=== PATIENT | female | born 1945 | race Caucasian/White ===

== ENCOUNTER 2016-08-03 11:25 | Emergency (ER) | payer BC, MEDICARE ==
[~2016-08-03 11:25] MED LIST: ACETAMINOPHEN PO; ALEVE220 M1 PO; AZOR 10/20 MG T1 TAB PO; GLUCOPHAGE500 M1 PO; MULTI-VITAMIN1 EAC1 PO; OMEPRAZOLE20 M1 PO; ZIAC PO
[2016-09-11] MEDS ORDERED: GABAPENTIN300 MG PO (13:05)
[2016-09-11] MEDS ORDERED: MOBIC15 MG PO (13:05)
== END 2016-08-03 11:32 | disposition home or self-care (01) ==
LOC: CFTX 11:25
DX: M54.42 Lumbago with sciatica, left side (principal); G89.29 Other chronic pain; E11.9 Type 2 diabetes mellitus without complications; I10 Essential (primary) hypertension; Z90.49 Acquired absence of other specified parts of digestive tract
CPT/HCPCS: 96372; 99283; J1885

== ENCOUNTER → 2016-09-12 | Day surgery (SDC) | payer BC, MEDICARE ==
[~2016-09-12] MED LIST changes: +GABAPENTIN300 MG PO; +MOBIC15 MG PO
--- NOTE | ~2016-09-12 | OR ---
Unit #: [id number] #: [id number] Patient: KAILEE TAYLOR [id number] [address] [place], [place] [address] [id number] MR#: [id number] NAME: KAILEE TAYLOR ROOM: Date of Procedure: 09/12/2016 Admission Date: 09/12/2016 Surgeon: Gilbert Ferguson M.D. : 1945 Attending Physician: Gilbert Ferguson M.D. Primary Care Physician: Elier Miranda M.D. [facility] OPERATIVE NOTE PROCEDURE PERFORMED Lumbar epidural steroid injection under x-ray guided needle placement with provider administered conscious sedation. PREOPERATIVE DIAGNOSES 1. Acute lumbar radiculitis. 2. Spinal stenosis, lumbosacral spine. 3. Herniated disk, L5-S1. 4. Degenerative joint disease, lumbosacral spine. 5. Degenerative disk disease, lumbosacral spine. INDICATIONS FOR PROCEDURE The patient presents today with a longstanding history of chronic recurrent lumbar radicular pain secondary to her underlying degenerative processes. She is generally fairly well managed medically, does occasionally experience exacerbations, which to date have only responded to epidural steroid injections. Her usual amount of pain relief was 80% to 100% for 8 to 10 weeks. She currently presents approximately 14 weeks out from her last epidural steroid injection with the 2- to 4-weeks history of crescendo pattern advancing radicular pain consistent with her L5-S1 herniated disk on x-ray reports. After discussing risks and benefits of proceeding today with a lumbar approach epidural steroid injection, the patient agreed this would be the appropriate course of action. DESCRIPTION OF PROCEDURE She was then taken to the operating room, where she was prepped and draped in a sterile manner. Standard monitors were applied. She was sedated with 2 mg of IV Versed initially and required additional 2 mg of IV Versed throughout the duration of the procedure. Lumbar epidural space was accessed at the L5-S1 level using loss of resistance technique and x-ray guidance. Needle placement was confirmed with injection of 2 mL of Omnipaque. There was good superior and inferior flow at this L5-S1 needle placement. Total x-ray time was 6 seconds. Following successful needle placement confirmation at the L5-S1 level, the patient received an injectate containing 4 mL of normal saline and 80 mg of methylprednisolone. She tolerated this procedure well. She was discharged home with followup instructions, which include return dates as described above. Dictated by... Unit #: [id number] #: [id number] Patient: KAILEE TAYLOR Madeline Mendoza/nitin TD: 09/13/2016 03:50 JOB #: [id number] CC: Frederick Rehman M.D. [facility] OPERATIVE NOTE Page 1 of 1 X Alfie Ferguson MD X PROCEDURE OPERATIVE NOTE
== END | disposition home or self-care (01) ==
LOC: CCSC 08:39
PROVIDERS: Anesthesiology
PROC: 3E0R33Z Introduction of Anti-inflammatory into Spinal Canal, Percutaneous Approach (ICD-10-PCS; principal; 2016-09-12 09:30)
DX: M51.17 Intervertebral disc disorders with radiculopathy, lumbosacral region (principal)
CPT/HCPCS: 82947; J1040; J2250